=== PATIENT | male | born 1995 | race African-American/Black ===

== ENCOUNTER 2022-03-14 00:24 | Emergency (ER) | payer SELFPAY ==
[2022-03-14] MEDS ORDERED: Proparacaine 0.5% Ophth Soln 15 ML Bottle EYEBOTH STA (01:05)
[2022-03-14] MEDS ORDERED: Tetracaine HCl/PF 0.5% 4 ML Bottle ONE (01:20)
[2022-03-14] MEDS ORDERED: Erythromycin Base 0.5% Ophth Oint 1 GM Tube EYERT STA (01:32)
[2022-03-14] MEDS ORDERED: Diphtheria,Pertussis(Acell),Tetanus Vaccine 0.5 ML Syringe IM ONE (01:33)
== END 2022-03-14 01:55 | disposition home or self-care (01) ==
LOC: MW.ED 00:24
DX: H10.9 Unspecified conjunctivitis (principal); Z23 Encounter for immunization
CPT/HCPCS: 90471; 90715; 99283; A9270; J3490